=== PATIENT | male | born 1930 | race Caucasian/White ===

== ENCOUNTER 2016-10-17 08:42 | Inpatient (IN) | payer MEDICARE, BC ==
--- NOTE | ~2016-10-17 | HP ---
Unit #: [id number] #: [id number] Patient: MULU VALLEJO [id number] [place], [place] [address] [id number] I MR#: [id number] NAME: MULU VALLEJO. ROOM: 333 Age: 86 Sex: M Admission Date: 10/17/2016 : 1930 Attending Physician: Kristen Mazariegos M.D. Primary Care Physician: No Primary Care Physician HISTORY AND PHYSICAL CHIEF COMPLAINT Passing blood in stool. HISTORY OF PRESENT ILLNESS The patient is an 86-year-old male with a past medical history of COPD, chronic respiratory failure, DVT, chronic anticoagulation, chronic kidney disease, coronary artery disease, BPH, peripheral vascular disease who presented to the emergency department for evaluation of the above. The patient states that he was in his usual state of health until the morning of admission when he started passing blood. He states that he passed blood without stool. He denies any abdominal pain. He has not had any chest pain, no difficulty breathing, no feelings of lightheadedness. No cough or cold symptoms. No fever. In the emergency department the patient's initial pulse and blood pressure were 74 and 189/80 respectively. Hemoglobin is 10.3 with an MCV of 67.4, INR is 2.3. He was given 40 mcg of Protonix. He is being admitted to [facility] for evaluation and further treatment. PAST MEDICAL HISTORY 1. Admission to [facility], 01/31/2015 for pneumonia. 2. Coronary artery disease, status post myocardial infarction. 3. 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 4. Chronic kidney disease. 5. BPH. 6. Peptic ulcer disease with perforated duodenum requiring surgery. 7. Peripheral vascular disease. The patient had abdominal aortic aneurysm requiring endo stent graft repair. One of the iliac parts of the graft became occluded and the patient subsequently underwent a right nsgcw-yos-xehi amputation. 8. COPD. 9. Chronic respiratory failure on 2 L of oxygen at night. PAST SURGICAL HISTORY 1. Cardiac catheterization. 2. Right hip surgery. 3. Endo stent graft repair of abdominal aortic aneurysm. 4. Vyjkm-lzl-ofqy amputation. SOCIAL HISTORY The patient lives with his daughter. There is no alcohol use. He quit smoking. His code status is a Do Not Resuscitate. Unit #: [id number] #: [id number] Patient: MULU VALLEJO FAMILY HISTORY Noncontributory secondary to age. ALLERGIES Nitroglycerin. HOME MEDICATIONS Montelukast 10 mg daily; Zocor 20 mg daily; metoprolol 25 mg twice daily; Claritin 10 mg daily; ipratropium albuterol 4 times daily; Flonase inhaled daily one to two sprays; Coumadin 2.5 mg at bedtime; Brilinta 90 mg twice daily; Neurontin 300 mg in the morning and 600 mg in the afternoon and at bedtime; Avodart 0.5 mg daily; Imdur 30 mg twice daily. REVIEW OF SYSTEMS A complete review of systems is negative except as indicated in the HPI. PHYSICAL EXAMINATION VITAL SIGNS: Temperature is 97.4, pulse 74, respirations 18, blood pressure 189/80, no recently 122/71, oxygen saturations 97% on room air. GENERAL: The patient is a male who is awake and alert in no acute distress. HEENT: Head is atraumatic. Mucous membranes are most. NECK: Supple. Trachea is midline. CARDIOVASCULAR: Regular rate and rhythm. LUNGS: Clear to auscultation bilaterally with no increased work of breathing. ABDOMEN: Soft, nontender with bowel sounds present in all four quadrants. RECTAL: Showed gross blood per ER documentation. EXTREMITIES: The right lower extremity has been previously amputated [id number]. There is no pedal edema involving the left lower extremity. NEUROLOGIC: The patient is awake and alert. He follows commands. PSYCH: Mood and affect were normal. The patient is cooperative. SKIN: Skin of examined areas is warm and dry. DIAGNOSTIC STUDIES CARDIOLOGY STUDIES: EKG shows normal sinus rhythm with a rate of 62 BPM. Complete blood count notable for hemoglobin and hematocrit of 10.3 and 34.3 respectively, MCV is 67.4, RDW is 28.3, INR is 2.3. Comprehensive metabolic panel notable for CO2 of 21, glucose 144, BUN and creatinine 21 and 1.5 respectively. Troponin is less than 0.03. ASSESSMENT The patient is an 86-year-old male with: 1. Hematochezia. 2. Microcytic anemia. The patient's hemoglobin was 14.6 on 08/08/2015. It is 10.3 today. 3. Chronic anticoagulation with Coumadin. The patient's INR is 2.3 today. 4. History of DVT. 5. Chronic kidney disease. The patient's creatinine is 1.5, which appears to be near his baseline. 6. Coronary artery disease, status post myocardial infarction. 7. BPH. 8. Peripheral vascular disease, status post repair of abdominal aortic aneurysm, and zjofs-vdq-emps amputation. 9. COPD. 10. Chronic respiratory failure on 2 L of oxygen per nasal cannula at Unit #: [id number] #: [id number] Patient: MULU VALLEJO. 11. Peptic ulcer disease. 12. Former smoker. 13. Possible diabetes. PLAN 1. Admit for observation to intermediate level. 2. Normal saline at 75 mL an hour. 3. Clear liquid diet for possible endoscopy. 4. Hemoglobin and hematocrit q.[address] Mckeon regarding GI bleed. 6. Serial cardiac enzymes. 7. Hold Brilinta and Coumadin. 8. Hemoglobin A1c. 9. Low dose sliding scale insulin with Accu-Cheks. 10. Repeat labs in the morning. 11. Additional workup and consultants based on above. 12. Regarding code status, the patient is a Do Not Resuscitate. Dictated by Yuval Luther/susie TD: 10/17/2016 14:45 JOB #: [id number] HISTORY AND PHYSICAL Page 1 of 1 X Kristen Mazariegos MD HISTORY AND PHYSICAL
--- NOTE | ~2016-10-17 | US85 ---
[facility] A Service of [facility] RADIOLOGY TEXT RESULTS PATIENT: MULU VALLEJO LOCATION: [facility] 333 : 29 UNIT #: [id number] AGE: [address]: Charanjit Banks MD SEX: M ORDER DR: [id number] [facility] [address] [place], [place] [address] [id number] I MR#: [id number] Acc #: [id number] NAME: MULU VALLEJO. : 1930 SEX: M STUDY DATE/TIME: 10/20/2016 9:34 UNIT: [id number] ROOM: [address] [place] [address] DESCRIPTION: LE Veins Unilat or Ltd Stdy Attending Physician: Charanjit Banks M.D. Ordering Physician: Charanjit Banks M.D. Primary Care Physician: No Primary Care Physician MEDICAL IMAGING REPORT This report is preliminary unless electronic signature is present EXAM Left lower extremity venous duplex 10/20/2016 HISTORY Chronic shortness of breath worsening on admission, 10/17/2016 with history of right lower extremity amputation. Evaluate for deep vein thrombosis left lower extremity. TECHNIQUE Venous ultrasound examination of the left lower extremity was performed using grayscale, spectral Doppler and color flow Doppler imaging. FINDINGS The examination is negative. There is no evidence of left lower extremity deep venous thrombus from the groin to the lower calf. Visualized greater saphenous vein is also patent. IMPRESSION Negative examination. No evidence of left lower extremity deep venous thrombosis. Dictated by... Rolando Shafer M.D. THIS IS AN ELECTRONICALLY VERIFIED REPORT Rolando Shafer M.D. at 10/22/2016 8:21 AM KRT/ashwin TD: 10/20/2016 12:24 JOB #: [id number] [facility] A Service [facility] RADIOLOGY TEXT RESULTS PATIENT: MULU VALLEJO LOCATION: [facility] 333 : 29 UNIT #: [id number] AGE: [address]: Charanjit Banks MD SEX: M ORDER DR: MEDICAL IMAGING REPORT Page 1 of 1 COPY
--- NOTE | ~2016-10-17 | EKG ---
PATIENT: MUUL VALLEJO UNIT #: [id number] Ventricular Rate: 62 BPM Atrial Rate: 62 BPM P-R Interval: 142 ms QRS Duration: 88 ms Q-T Interval: 438 ms QTC Calculation(Bezet): 444 ms P [place]: 46 degrees Calculated R [place]: 86 degrees Calculated T [place]: 67 degrees Diagnosis Line: Normal sinus rhythm Diagnosis Line: Normal ECG Diagnosis Line: When compared with ECG of 08-AUG-2015 09:51, Diagnosis Line: No significant change was found Diagnosis Line: Confirmed by VIVI MORENO MD ([id number]) on Diagnosis Line: 10/20/2016 3:14:31 PM INTERPRETING MD: TIFFANIE LARSEN
--- NOTE | ~2016-10-17 | OR ---
Unit #: [id number] #: [id number] Patient: MULU VALLEJO [id number] [facility] [address]. [place], [place] [address] [id number] Janeth MR#: [id number] NAME: MULU VALLEJO. ROOM: [facility] Date of Procedure: 10/20/2016 Admission Date: 10/20/2016 Surgeon: Nabor Mckeon M.D. : 1930 Attending Physician: Charanjit Banks M.D. OPERATIVE REPORT PROCEDURE PERFORMED Colonoscopy with snare polypectomy and colonoscopy with argon plasma coagulation. INDICATIONS FOR PROCEDURE The patient presented with significant overt GI bleeding. He was on Brilinta and Coumadin have been off for last 3 days, undergoing colonoscopy for evaluation. MEDICATIONS Monitored anesthesia. POSTOPERATIVE FINDINGS 1. Polyp, cecum, 1 cm, snared and sent for histopathology. Hemoclip applied. 2. Polyp, ascending colon, 1 cm, snared and hemoclipped. 3. 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 4. Small polyp, 5 to 6 mm, descending colon, snared and sent for histopathology. 5. Diverticulosis. 6. Internal hemorrhoids. PLAN We will keep Brilinta and Coumadin off for at least 2 weeks. Watch for any further bleeding. DESCRIPTION OF PROCEDURE The patient was explained of the procedure, risks, and benefits along with risks and benefits of anesthesia. He was brought to the endoscopy room. Propofol anesthesia was given. Rectal exam was done, which was normal. Colonoscope was lubricated, passed up the rectum, advanced under direct vision all the way to the cecum. Cecum was identified by ileocecal valve and appendiceal orifice. Findings have been described above. I retroflexed in the rectum, small hemorrhoids seen. Gently, the scope was pulled out. He tolerated it well. No major complications were seen. Dictated by... Yuval Lai/karely Unit #: [id number] #: [id number] Patient: MULU VALLEJO TD: 10/20/2016 22:21 JOB #: [id number] OPERATIVE REPORT Page 1 of 1 X Nabor Mckeon MD PROCEDURE OPERATIVE NOTE
--- NOTE | ~2016-10-17 | CO ---
Unit #: [id number] #: [id number] Patient: MULU VALLEJO [id number] [facility]. [place], [place] [address] [id number] I MR#: [id number] NAME: MULU VALLEJO. ROOM: 333 Age: 86 Sex: M Admission Date: 10/17/2016 : 1930 Attending Physician: Charanjit Banks M.D. Consultation Date: 10/18/2016 CONSULTATION REPORT REASON FOR CONSULTATION Passing blood in the stool. HISTORY OF PRESENT ILLNESS Mr. Vallejo is an 86-year-old pleasant gentleman, who was admitted yesterday. He started with blood in the stool, which is bright red yesterday morning. There were no associated abdominal pain, fever, or chills. He has not had any similar symptoms in the long time. He had a colonoscopy done 6 years ago apparently, does not know the results. He has significant history of coronary artery disease and has been on Brilinta and Coumadin. PAST MEDICAL HISTORY Significant for history of coronary artery disease, status post multiple myocardial infraction; history of DVT, on chronic anticoagulation with Coumadin; history of peptic ulcer disease, requiring surgery; peripheral vascular disease; COPD; history of aortic aneurysm repair. SOCIAL HISTORY Nonsmoker, non-alcoholic. FAMILY HISTORY Noncontributory. ALLERGIES Nitroglycerin. MEDICATIONS Include Coumadin, Brilinta, which are now on hold; Neurontin; Avodart; Singulair; Zocor; metoprolol; and Claritin. REVIEW OF SYSTEMS Complete 10-point review of systems was done, which is unremarkable other than as mentioned above. PHYSICAL EXAMINATION VITAL SIGNS: Stable. Temperature 97.4, pulse 74, respirations 18, blood pressure 180/90. HEENT: Pupils are equal and reactive. Sclerae anicteric. Oral mucosa is moist. NECK: No JVD. No lymphadenopathy. CHEST: Clear to auscultation bilaterally. CARDIOVASCULAR: Regular rate and rhythm. No murmurs. Unit #: [id number] #: [id number] Patient: MULU VALLEJO ABDOMEN: Soft, nontender, and nondistended. EXTREMITIES: Without clubbing, cyanosis, or edema. NEUROLOGICAL: Intact. SKIN: Warm and dry. DIAGNOSTIC STUDIES LABORATORY RESULTS: Hemoglobin today of 9.6, yesterday was 10.3, baseline of 14.6. Chemistries are unremarkable. ASSESSMENT AND PLAN 1. The patient with lower gastrointestinal bleeding, possibly diverticular, hemorrhoidal versus other malignancy cannot be ruled out. We will recommend colonoscopy for evaluation given that he has been on Coumadin and Brilinta, and INR is 2.5, we will await until coagulation is reversed. 2. History of deep vein thrombosis with multiple myocardial infarctions. We will have Dr. Lucero to see the patient regarding holding the anticoagulation and management. 3. Anemia of acute blood loss. We will transfuse if there is any significant drop. 4. Chronic obstructive pulmonary disease. Thank you Dr. Mazariegos for this interesting consult. We will follow along. Dictated by... Yuval Lai/karely TD: 10/18/2016 13:34 JOB #: [id number] CONSULTATION REPORT Page 1 of 1 X Nabor Mckeon MD X CONSULTATION REPORT
--- NOTE | ~2016-10-17 | DS ---
Unit #: [id number] #: [id number] Patient: MULU VALLEJO [id number] [address] [place], [place] [address] [id number] I MR#: [id number] NAME: MULU VALLEJO. ROOM: 333 Age: 86 Sex: M Admission Date: 10/17/2016 : 1930 Discharge Date: 10/23/2016 Attending Physician: Charanjit Banks M.D. Primary Care Physician: No Primary Care Physician DISCHARGE SUMMARY REASON FOR ADMISSION Passing blood in stool. HISTORY OF PRESENT ILLNESS/HOSPITAL COURSE The patient is an 86-year-old male, not the best historian, who has a prior history of COPD, chronic respiratory failure, questionable history of DVT, prior history of arterial thrombus status post rmkvt-rcg-hrrr amputation with associated postoperative complications on the right side, on chronic anticoagulation, chronic kidney disease, as well as coronary artery disease. He presented secondary to passing bright red blood. His initial hemoglobin was 10.3. We placed consultation to Dr. Mckeon of gastroenterology services. After review and discussion with the patient's daughter, as well as son in law, decision was made to proceed with colonoscopy, as well as upper GI endoscopy. Through this hospital course, the patient underwent both. Colonoscopy findings revealed polyps, which were subsequently removed. Patient did have a large AVM in the ascending colon. It was cauterized using APC. Internal hemorrhoids were also noted. The patient also underwent upper GI endoscopy, which did reveal findings consistent with gastritis. No overt findings were noted. No acute signs of bleeding were noted. Please see procedure note for details. Patient also underwent ultrasound of his left lower extremity for concern for possible underlying DVT secondary to his history of DVT. This returned back negative. Today, at time of discharge the patient's hemoglobin now stands at 8.8. His MCV is 69. He did receive IV Venofer while he was here, and he will be discharged on p.o. iron at time of discharge. I also placed consultation to Dr. Lucero of cardiology service secondary to his prior history of coronary artery disease, as well as reasoning behind Brilinta, as well as Coumadin. They have recommended to discontinue Brilinta. After review and discussion with the patient's family, we have elected to resume the patient on Coumadin, although in this advanced age individual, he is at a slightly higher risk, but given his prior history of thrombosis, as well as peripheral arterial disease, prior history of coronary artery disease, family members wish for him to be restarted on Coumadin; therefore, appropriate arrangements will be made at time of Unit #: [id number] #: [id number] Patient: MULU VALLEJO discharge. Home health will follow the patient at time of discharge, as well. FINAL DISCHARGE DIAGNOSES 1. Passing blood in stool/hematochezia. 2. Coronary artery disease status post myocardial infarction in the past. 3. Prior history of deep vein thrombosis, treated. 4. Prior history of peripheral arterial disease with prior history of arterial thrombus status post cqjcr-ydk-sgng amputation on right side. 5. Chronic kidney disease. 6. Benign prostatic hypertrophy. 7. Prior history of peptic ulcer disease with perforated duodenum in the past requiring surgery. 8. 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 9. Abdominal aortic aneurysm repair in the past status post graft. 10. Chronic obstructive pulmonary disease. 11. Chronic respiratory failure, on home oxygen at night, 2 liters. FINAL DISCHARGE MEDICATIONS 1. DuoNeb aerosol solution q.6 hours. 2. Flonase 1-2 sprays each nostril daily. 3. Coumadin 2.5 mg p.o. q.h.s. 4. Neurontin 300 mg p.o. b.i.d. 5. Metoprolol 25 mg p.o. b.i.d. 6. Zocor 20 mg p.o. q.h.s. 7. Avodart 0.5 mg p.o. daily. 8. Imdur 30 mg p.o. b.i.d. 9. Protonix 40 mg p.o. daily. 10. Ferrous gluconate 325 mg p.o. daily. DISCHARGE CONDITION Stable. DISCHARGE DISPOSITION Home. Dictated by... Yuval Ackerman TD: 10/26/2016 08:30 JOB #: [id number] DISCHARGE SUMMARY Page 1 of 1 X Charanjit Banks MD X DISCHARGE SUMMARY
--- NOTE | ~2016-10-17 | CO ---
Unit #: [id number] #: [id number] Patient: MULU VALLEJO [id number] [address] [place], [place] [address] [id number] MR#: [id number] NAME: MULU VALLEJO. ROOM: 333 Age: 86 Sex: M Admission Date: 10/17/2016 : 1930 Attending Physician: Charanjit Banks M.D. Primary Care Physician: No Primary Care Physician Consultation Date: 10/18/2016 CONSULTATION REPORT REASON FOR CONSULT Cardiovascular management and anticoagulation. HISTORY OF PRESENT ILLNESS This is an 86-year-old white male known to Dr. Lucero with a past medical history of coronary artery disease, status post cardiac catheterization on 08/08/2015 which revealed a distal left main stenosis of 40% to 50%, mid LAD 30%, left circumflex at origin of the PDA 40% to 50%, and high marginal versus ramus intermedius 60% to 70%. Ejection fraction was greater than 60%. He was managed medically. 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 The patient is a reformed smoker. He is on chronic anticoagulation with Coumadin due to history of DVT. He presented to the hospital with complaints of rectal bleeding which was bright red. He denies any fever or chills. There are no reports of nausea or vomiting. He has had some abdominal cramping. The patient denies any dizziness, palpitations or syncope. There are no reports of PND, orthopnea or lower extremity edema. He has had some intermittent chest pain at variable times. The pain is located in the midsternal chest. There is no radiation to the neck, jaws, shoulders or arms. There are no associated symptoms except for chronic shortness of breath. He is fairly sedentary due to the loss of his right leg and he sits in a recliner most of the day watching TV. The chest pain occurs at variable times. He has not taken a nitroglycerin for it. It lasts for minutes and then resolves. In the emergency department, his temperature is 97.4, pulse 74, respirations 18, and blood pressure 189/80. He was given 40 mg of IV Protonix. Labs revealed a hemoglobin around 9.6 which is a 4 gm drop since previous lab studies. Platelets are normal. Renal function was stable. Glucose levels were high and hemoglobin A1c was obtained and was elevated at 6.4. Initial cardiac enzymes are negative. INR was therapeutic. EKG revealed normal sinus rhythm with no acute ST or T wave changes. The patient was admitted for a lower GI bleed and acute blood loss anemia. Gastroenterology was consulted and he was started on MiraLAX. He is scheduled to have a scope within the next couple of days. His Coumadin has been placed on hold. He was on Brilinta at home due to coronary artery disease and that has also been stopped. Unit #: [id number] #: [id number] Patient: MULU VALLEJO PAST MEDICAL HISTORY 1. Coronary artery disease, status post cardiac catheterization on 08/08/2015 which revealed distal left main 40% to 50%, mid LAD 30%, left circumflex at the origin of the left PDA 40% to 50%. High marginal or ramus intermedius 60% to 70%. Right coronary artery normal. Small apical akinesis. Ejection fraction greater than 60%. Medical management. 2. 2D echocardiogram May 2016 in the office revealed an ejection fraction of 55%. Impaired LV relaxation. Moderate aortic stenosis. Trace mitral regurgitation. Mild tricuspid regurgitation. 3. Previous myocardial infarction. 4. Peripheral artery disease with an abdominal aortic aneurysm, status post endovascular stent/graft. 5. Femoral bypass. 6. 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 7. COPD. 8. Chronic respiratory failure, on 2 L home oxygen. 9. BPH. 10. Chronic kidney disease. 11. Peptic ulcer disease with perforated duodenum. 12. History of DVT, on chronic anticoagulation with Coumadin. 13. Reformed tobacco abuse. PAST SURGICAL HISTORY 1. Cardiac catheterization. 2. Abdominal aortic aneurysm repair with graft/stent. 3. Femoral bypass. 4. Colonoscopy. 5. Hip replacement. 6. Right above knee amputation. HOME MEDICATIONS 1. Flonase, one to two sprays in each nostril daily. 2. Warfarin 2.5 mg p.o. at bedtime. 3. Brilinta 90 mg p.o. b.i.d. 4. Neurontin 300 mg p.o. daily. 5. Gabapentin 600 mg p.o. b.i.d. 6. Avodart 0.5 mg p.o. daily. 7. Imdur ER 30 mg p.o. b.i.d. 8. Singulair 10 mg p.o. daily. 9. Zocor 20 mg p.o. daily. 10. Metoprolol succinate 25 mg p.o. b.i.d. 11. Claritin 10 mg p.o. daily. 12. Ipratropium/albuterol 3 mL inhalation four times daily. ALLERGIES Adverse reaction to nitroglycerin with a headache. SOCIAL HISTORY The patient lives in a private residence. He is a reformed smoker. There are no reports of alcohol or drug use. FAMILY HISTORY Noncontributory. REVIEW OF SYSTEMS Ten point review of systems negative except for details noted above in Unit #: [id number] #: [id number] Patient: MULU VALLEJO. PHYSICAL EXAMINATION VITAL SIGNS: Temperature 97.4, pulse 74, blood pressure 189/80. CONSTITUTIONAL: This is an 86-year-old white male in no acute distress. SKIN: Warm and dry. NECK: Supple. No jugular vein distention. No hepatojugular reflux. Normal carotid upstrokes. No carotid bruits auscultated. HEART: S1 and S2. Regular rate and rhythm. Soft systolic ejection murmur left sternal border. No rubs or gallops. LUNGS: Bilateral breath sounds have good air entry throughout all lung wong. Respirations even and unlabored. No rales, rhonchi, or wheezes. ABDOMEN: Soft, nontender, nondistended. Positive bowel sounds auscultated x4 quadrants. No ascites noted. EXTREMITIES: Right lower extremity has been amputated. Left lower extremity has trace pitting edema. DP and PT pulses in the left 1+. Capillary refill less than three seconds. DIAGNOSTIC STUDIES LABORATORY: White blood cell count 6.7, hemoglobin 10, hematocrit 33.4, platelets 336, sodium 140, potassium 4.3, chloride 115, CO2 20, BUN 13, creatinine 1.2, glucose 106, AST 18, ALT 13, alkaline phos. 33. Hemoglobin A1c 6.4, troponin 0.03 and 0.03. INR 2.4 and then 2.1. CARDIOVASCULAR: Electrocardiogram reveals sinus rhythm with a ventricular rate of 62 beats/minute. Nonspecific ST-T wave changes. QTC 444 msec. IMPRESSION 1. Acute lower gastrointestinal bleed. 2. Acute blood loss anemia. 3. History of deep venous thrombosis, on chronic anticoagulation with Coumadin. 4. Therapeutic INR. 5. Coronary artery disease, status post cardiac catheterization July 2015, nonobstructive. Medical management. 6. Ejection fraction 25% with moderate aortic stenosis and mild tricuspid regurgitation on 2D echocardiogram May 2016. 7. 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 8. History of abdominal aortic aneurysm, status post repair. 9. Chronic kidney disease. 10. Chronic obstructive pulmonary disease. 11. Chronic respiratory failure, on home oxygen. 12. Insulin resistance. PLAN 1. The patient presented to the hospital with complaints of rectal bleeding. He was admitted for further observation and gastroenterology was consulted. 2. Cardiology was consulted for cardiovascular management as well as anticoagulation. 3. The patient's Brilinta and Coumadin have been placed on hold. 4. There is no evidence of congestive heart failure on exam. 5. The patient has reports of intermittent chest pain while on medical management. Invasive studies versus medical management have been discussed with the patient and he has opted for medical management at this time. 6. He will be continued on beta ashish, long acting nitrates and Unit #: [id number] #: [id number] Patient: MULU VALLEJO statin. 7. His Brilinta can be discontinued as the patient has no history of coronary stents and is having issues with rectal bleeding. 8. The patient has been cleared to undergo GI procedures at acceptable risk. Dictated by... Laura Patten APRN for Yuval Tovar TD: 10/20/2016 07:44 JOB #: [id number] CONSULTATION REPORT Page 1 of 1 X X CONSULTATION REPORT
[~2016-10-17 08:42] MED LIST: ALBUTEROL MININEB NEB; AVODART0.5 MG PO; CLARITIN10 M2 PO; COLACE PO; LEVAQUIN750 MG PO; METOPROLOL SUCC50 MG PO; MONTELUKAST SOD10 MG PO; NEURONTIN100 MG; NEURONTIN300 MG PO; TRAMADOL-APAP1 EACH PO; VITAMIN C250 M1 PO; WARFARIN SODIUM3 M1 PO; ZOCOR PO
[2016-10-17 10:04] LABS: BASOPHIL% 0.4 % (0-2.5); DIFF IND NO; EOSINOPHIL# 0.3 X10e3 (0-0.7); EOSINOPHIL% 3.5 % (0.0-7.0); HEMATOCRIT 34.3 % (38.0-50.0); HEMOGLOBIN 10.3 gm/dL (13.0-16.0); LYMPHOCYTE# 0.9 X10e3 (1.0-3.5); LYMPHOCYTE% 11.3 % (17.0-45.0); MEAN CELL VOLUME 67.4 FL (83-96); MEAN CORPUSCULAR HEMOGLOBIN 20.3 PG (28-34); MEAN PLATELET VOLUME 9.4 FL (6.5-11.5); MONOCYTE# 0.8 X10e3 (0-1.0); MONOCYTE% 10.1 % (3.0-12.0); NEUTROPHIL# 6.2 X10e3 (1.5-7.1); NEUTROPHIL% 74.7 % (40-75); PLATELET COUNT 365 X10e3 (140-420); RED BLOOD COUNT 5.08 X10e (3.90-5.60); RED CELL DISTRIBUTION WIDTH 28.3 % (11.0-15.5); WHITE BLOOD COUNT 8.3 X10e3 (4.0-10.5)
[2016-10-17 10:14] LABS: INR 2.3; PARTIAL THROMBOPLASTIN TIME 33.7 SECONDS (23.5-31.3); PROTHROMBIN TIME (PATIENT) 24.4 SECONDS (9.6-11.5)
[2016-10-17 10:31] LABS: ALBUMIN SERUM 3.8 g/dL (3.5-5.0); BILIRUBIN, DIRECT 0.1 mg/dL (0.0-0.2); BILIRUBIN,INDIRECT 0.7 mg/dL (0.0-0.9); BILIRUBIN,TOTAL 0.8 mg/dL (0.2-2.0); CALCIUM SERUM 8.5 mg/dL (8.4-10.2); CREATININE SERUM 1.5 mg/dL (0.6-1.4); GLOM FILT RATE Estimated 41.3 mL/min (>60); PROTEIN TOTAL SERUM 6.9 g/dL (6.0-8.3)
[2016-10-17] MEDS ORDERED: BRILINTA90 MG PO (10:59)
[2016-10-17] MEDS ORDERED: NEURONTIN300 MG PO (11:00)
[2016-10-17] MEDS ORDERED: GABAPENTIN600 MG PO (11:01)
[2016-10-17] MEDS ORDERED: AVODART0.5 MG PO (11:01)
[2016-10-17] MEDS ORDERED: IMDUR-ER30 MG PO (11:01)
[2016-10-17] MEDS ORDERED: MONTELUKAST SOD10 MG PO (11:02)
[2016-10-17] MEDS ORDERED: ZOCOR20 MG PO (11:02)
[2016-10-17] MEDS ORDERED: METOPROLOL SUCC25 MG PO (11:03)
[2016-10-17] MEDS ORDERED: CLARITIN10 M3 PO (11:03)
[2016-10-17] MEDS ORDERED: IPRAT-ALBUT 0.5-3 ML INH (11:04)
[2016-10-17] MEDS ORDERED: FLONASE ALLERG9.9 ML INH (11:05)
[2016-10-17] MEDS ORDERED: COUMADIN2.5 MG PO (11:10)
[2016-10-17 13:04] LABS: %MB 3.9 % (0.0-4.0); MB 2.4 ng/ml
[2016-10-17 15:20] LABS: HEMATOCRIT 31.5 % (38.0-50.0); HEMOGLOBIN 9.6 gm/dL (13.0-16.0)
[2016-10-17 17:56] LABS: %MB 3.8 % (0.0-4.0); MB 2.9 ng/ml
[2016-10-17 21:17] LABS: HEMATOCRIT 31.4 % (38.0-50.0); HEMOGLOBIN 9.5 gm/dL (13.0-16.0)
[2016-10-18 00:19] LABS: %MB 3.2 % (0.0-4.0); MB 2.8 ng/ml
[2016-10-18 03:51] LABS: HEMATOCRIT 31.6 % (38.0-50.0); HEMOGLOBIN 9.6 gm/dL (13.0-16.0); MEAN CELL VOLUME 67.3 FL (83-96); MEAN CORPUSCULAR HEMOGLOBIN 20.4 PG (28-34); MEAN CORPUSCULAR HGB CONC 30.3 g/dL (30-36); MEAN PLATELET VOLUME 9.2 FL (6.5-11.5); RED BLOOD COUNT 4.69 X10e (3.90-5.60); RED CELL DISTRIBUTION WIDTH 28.2 % (11.0-15.5); WHITE BLOOD COUNT 8.4 X10e3 (4.0-10.5)
[2016-10-18 05:41] LABS: INR 2.4; PROTHROMBIN TIME (PATIENT) 26.2 SECONDS (9.6-11.5)
[2016-10-18 06:11] LABS: CALCIUM SERUM 8.6 mg/dL (8.4-10.2); CREATININE SERUM 1.4 mg/dL (0.6-1.4); GLOM FILT RATE Estimated 44.9 mL/min (>60)
[2016-10-19 08:27] LABS: INR 2.1; PROTHROMBIN TIME (PATIENT) 23.1 SECONDS (9.6-11.5)
[2016-10-19 08:28] LABS: HEMATOCRIT 33.4 % (38.0-50.0); MEAN CELL VOLUME 67.3 FL (83-96); MEAN CORPUSCULAR HEMOGLOBIN 20.2 PG (28-34); MEAN PLATELET VOLUME 8.9 FL (6.5-11.5); RED BLOOD COUNT 4.97 X10e (3.90-5.60); RED CELL DISTRIBUTION WIDTH 28.6 % (11.0-15.5); WHITE BLOOD COUNT 6.7 X10e3 (4.0-10.5)
[2016-10-19 08:52] LABS: ALBUMIN SERUM 3.5 g/dL (3.5-5.0); BILIRUBIN,TOTAL 1.1 mg/dL (0.2-2.0); BUN/CREATININE RATIO 10.83; CALCIUM SERUM 8.4 mg/dL (8.4-10.2); CREATININE SERUM 1.2 mg/dL (0.6-1.4); GLOM FILT RATE Estimated 54.1 mL/min (>60); POTASSIUM 4.3 mmol/L (3.5-5.1); PROTEIN TOTAL SERUM 6.4 g/dL (6.0-8.3)
[2016-10-20 07:02] LABS: INR 1.9; PROTHROMBIN TIME (PATIENT) 20.8 SECONDS (9.6-11.5)
[2016-10-21 04:31] LABS: HEMATOCRIT 28.3 % (38.0-50.0); HEMOGLOBIN 8.7 gm/dL (13.0-16.0); MEAN CELL VOLUME 67.4 FL (83-96); MEAN CORPUSCULAR HEMOGLOBIN 20.8 PG (28-34); MEAN CORPUSCULAR HGB CONC 30.8 g/dL (30-36); MEAN PLATELET VOLUME 9.1 FL (6.5-11.5); RED BLOOD COUNT 4.19 X10e (3.90-5.60); RED CELL DISTRIBUTION WIDTH 27.4 % (11.0-15.5); WHITE BLOOD COUNT 6.2 X10e3 (4.0-10.5)
[2016-10-21 04:40] LABS: INR 1.5; PROTHROMBIN TIME (PATIENT) 15.8 SECONDS (9.6-11.5)
[2016-10-21 04:47] LABS: ALBUMIN SERUM 3.2 g/dL (3.5-5.0); BILIRUBIN,TOTAL 0.4 mg/dL (0.2-2.0); BUN/CREATININE RATIO 14.16; CALCIUM SERUM 7.9 mg/dL (8.4-10.2); CREATININE SERUM 1.2 mg/dL (0.6-1.4); GLOM FILT RATE Estimated 54.1 mL/min (>60); PROTEIN TOTAL SERUM 5.8 g/dL (6.0-8.3)
[2016-10-22 05:28] LABS: HEMATOCRIT 28.7 % (38.0-50.0); HEMOGLOBIN 8.8 gm/dL (13.0-16.0); MEAN CELL VOLUME 67.6 FL (83-96); MEAN CORPUSCULAR HEMOGLOBIN 20.8 PG (28-34); MEAN CORPUSCULAR HGB CONC 30.8 g/dL (30-36); MEAN PLATELET VOLUME 8.5 FL (6.5-11.5); RED BLOOD COUNT 4.24 X10e (3.90-5.60); RED CELL DISTRIBUTION WIDTH 28.4 % (11.0-15.5); WHITE BLOOD COUNT 6.7 X10e3 (4.0-10.5)
[2016-10-22 06:22] LABS: ALBUMIN SERUM 3.2 g/dL (3.5-5.0); BILIRUBIN,TOTAL 0.8 mg/dL (0.2-2.0); BUN/CREATININE RATIO 14.16; CALCIUM SERUM 7.8 mg/dL (8.4-10.2); CREATININE SERUM 1.2 mg/dL (0.6-1.4); GLOM FILT RATE Estimated 54.1 mL/min (>60); POTASSIUM 4.2 mmol/L (3.5-5.1); PROTEIN TOTAL SERUM 5.8 g/dL (6.0-8.3)
[2016-10-23 06:10] LABS: HEMATOCRIT 29.1 % (38.0-50.0); HEMOGLOBIN 8.8 gm/dL (13.0-16.0); MEAN CELL VOLUME 69.4 FL (83-96); MEAN CORPUSCULAR HGB CONC 30.3 g/dL (30-36); MEAN PLATELET VOLUME 8.8 FL (6.5-11.5); RED BLOOD COUNT 4.19 X10e (3.90-5.60); RED CELL DISTRIBUTION WIDTH 28.5 % (11.0-15.5); WHITE BLOOD COUNT 6.4 X10e3 (4.0-10.5)
[2016-10-23] MEDS ORDERED: COMBIVENT U/D3 M2 INH (13:22)
[2016-10-23] MEDS ORDERED: GABAPENTIN300 MG PO (13:23)
[2016-10-23] MEDS ORDERED: PROTONIX PO (13:25)
[2016-10-23] MEDS ORDERED: FERROUS GLUCON324 M1 PO (13:27)
== END 2016-10-23 14:22 | disposition home health service (06) | DRG 378 ==
LOC: CED 08:42 → C3A PCU 10:55 → CEDOF 10:55 → CED 11:05 → C3A PCU 12:48 → CEDOF 12:48 → C3A PCU 12:48 → CEDOF 10-20 14:29 → C3A PCU 10-20 14:29 → CED 10-20 14:29 → C3A PCU 10-23 14:22
PROVIDERS: Emergency Medicine; Family Medicine; Internal Medicine; Nurse Practitioner Family
PROC: 0DBK8ZX Excision of Ascending Colon, Via Natural or Artificial Opening Endoscopic, Diagnostic (ICD-10-PCS; 2016-10-20)
PROC: 0W3P8ZZ Control Bleeding in Gastrointestinal Tract, Via Natural or Artificial Opening Endoscopic (ICD-10-PCS; 2016-10-20)
PROC: 30233K1 Transfusion of Nonautologous Frozen Plasma into Peripheral Vein, Percutaneous Approach (ICD-10-PCS; principal; 2016-10-20 12:00)
PROC: 0DBH8ZX Excision of Cecum, Via Natural or Artificial Opening Endoscopic, Diagnostic (ICD-10-PCS; 2016-10-20 12:00)
PROC: 0DBM8ZX Excision of Descending Colon, Via Natural or Artificial Opening Endoscopic, Diagnostic (ICD-10-PCS; 2016-10-20 12:00)
DX: K55.21 Angiodysplasia of colon with hemorrhage (principal); D62 Acute posthemorrhagic anemia; J96.10 Chronic respiratory failure, unspecified whether with hypoxia or hypercapnia; E11.22 Type 2 diabetes mellitus with diabetic chronic kidney disease; Z99.81 Dependence on supplemental oxygen; E88.81 Metabolic syndrome and other insulin resistance; J44.9 Chronic obstructive pulmonary disease, unspecified; I25.10 Atherosclerotic heart disease of native coronary artery without angina pectoris; I25.2 Old myocardial infarction; N18.9 Chronic kidney disease, unspecified; N40.0 Benign prostatic hyperplasia without lower urinary tract symptoms; D12.0 Benign neoplasm of cecum; D12.2 Benign neoplasm of ascending colon; D12.4 Benign neoplasm of descending colon; K64.8 Other hemorrhoids; K29.70 Gastritis, unspecified, without bleeding; Z88.8 Allergy status to other drugs, medicaments and biological substances; Z79.01 Long term (current) use of anticoagulants; Z86.718 Personal history of other venous thrombosis and embolism; Z87.891 Personal history of nicotine dependence; I73.9 Peripheral vascular disease, unspecified; Z96.649 Presence of unspecified artificial hip joint; K57.90 Diverticulosis of intestine, part unspecified, without perforation or abscess without bleeding
CPT/HCPCS: 36415; 80048; 80053; 80076; 82550; 82553; 82947; 83036; 84484; 85014; 85018; 85025; 85027; 85610; 85730; 86850; 86900; 86901; 88305; 93005; 93971; 94640; 94760; 96374; 97161; 97530; 99285; C9113; G8978-GP; G8979-GP; G8980-GP; J2916; P9059